=== PATIENT | female | born 1980 | race Caucasian/White ===

== ENCOUNTER 2017-05-27 19:27 | Emergency (ER) | payer MEDICAID ==
[2016-05-01 05:16] VITALS: Ht 162.6 cm; Wt 105.7 kg
[~2017-05-27] VITALS: Ht 162.6 cm; Wt 105.7 kg
[~2017-05-27 19:27] MED LIST: ACET-1966 PO; AMOX500T10 PO; ATEN-1 PO; CYCL-277 PO; CYCL10TA29 PO; DOCU240C67 PO; HYDR-4309 PO; IBUP800T37 PO; LAN30PT PO; LANS30TA12 PO; LEV125 PO; Lanolin TP; META800T18 PO; ONDA4TAB PO; OXYC-373 PO; PER PO; PREN-136 PO; SUCR1TAB85 PO; TIZA4CAP3 PO; TRAM-420 PO; TRAZ-156 PO; ZOLP-358 PO
--- NOTE | 2017-05-27 19:29 | ER Report ---
History and Physical Time Seen By MD: 19:29 HPI/ROS CHIEF COMPLAINT: Rectal bleeding, leg swelling HISTORY OF PRESENT ILLNESS: 36-year-old female presents ambulatory to the ER with a variety of complaints. She is approximately one year . Patient's complaint of rectal bleeding for 3 weeks. She states she was seen by her primary care. According Yuriy and diagnostic blood work was unremarkable. She's not been referred to follow-up with general surgery for further evaluation. Patient is complaining of bilateral leg swelling. She is concerned about knee pain. Apparently she's been seen by Dr. Basurto orthopedic surgery who advised physical therapy, but she is not gone to any appointments yet. Patient admits that she is hypothyroid and thyroid medication as prescribed for her, but she's not taking it. Patient was given Lasix after her last delivery by LABORATORY MONITOR for leg swelling. Patient also talks about chronic back pain. She states she has a history of scoliosis and has had rods placed in her back. She describes a tearing pain is chronic in her back. She states that doctors don't seem to listen to her when she complains about her symptoms. Patient's also requesting supplements to help her conditions. REVIEW OF SYSTEMS: Respiratory: No cough, no dyspnea. Cardiovascular: No chest pain, no palpitations. Gastrointestinal: No vomiting, no abdominal pain. Musculoskeletal: No back pain. Allergies: Coded Allergies: No Known Drug Allergies (Unverified , 05/27/17) Home Meds Active Scripts Furosemide (LASIX) 20 Mg Tablet, 1 TAB PO DAILY for lower extremity swelling, # 14 TAB Prov:MIRTHA SALGADO DO 05/27/17 Hydrocortisone Acetate (Hemmorex-Hc) 25 Mg Supp.rect, 1 SUPP.RECT WI BID for internal hemorrhoids, #20 Prov:MIRTHA SALGADO DO 05/27/17 Reported Medications Paroxetine Hcl (PAXIL) 20 Mg Tablet, 50 MG PO QDAY, TAB 05/27/17 Discontinued Scripts Metaxalone (SKELAXIN) 800 Mg Tablet, 800 MG PO Q8H for back pain, #15 0 Refills Prov:SAUNDRA SINGH NP 08/21/16 Reviewed Nurses Notes: Yes Old Medical Records Reviewed: Yes Hx Smoking: Yes Smoking Status: Former Smoker Exposure to Second Hand Smoke?: Yes Hx Substance Use Disorder: No Constitutional Vital Sign - Last 24 Hours 1205/27/17 05/27/17 05/27/17 19:27 19:36 19:41 20:31 Temp 98.8 Pulse ??? 120 Resp 18 B/P (MAP) 160/96 160/96 (117) 149/105 (120) Pulse Ox 92 O2 Delivery Room Air 05/27/17 20:36 B/P (MAP) 139/104 (116) Physical Exam Vital signs stable, afebrile, pulse ox normal General Appearance: The patient is alert, has no immediate need for airway protection and no current signs of toxicity. Skin warm, dry, pink Eyes: Pupils equal and round no injection. Respiratory: Chest is non tender, lungs are clear to auscultation. Cardiac: regular rate and rhythm Gastrointestinal: Abdomen is soft and non tender, no masses, bowel sounds normal. Anoscopy was performed, there were some friable internal hemorrhoids noted, no active bleeding Musculoskeletal: Neck: Neck is supple and non tender. Extremities have full range of motion and are non tender. Skin: No rashes or lesions. DIFFERENTIAL DIAGNOSIS: After history and physical exam differential diagnosis was considered for lower GI bleeding including but not limited to diverticulosis , tumor, AVM, hemorrhoid and anal fissure. Lower extremity edema, hypothyroidism, depression, somatization disorder Medical Decision Making ED Course/Re-evaluation ED Course Patient was admitted to an examination room. H&P was done. The dental diagnoses was considered. On conical examination. Patient has stable vital signs. Occult to determine the amount of rectal bleeding. She has. Patient notes no old for blood. She denies passing clots. She notes occasional blood on the tissue when she wipes. Patient states she had blood work done that was normal showing no evidence of anemia. She denies clotting disorder. Anoscopy shows friable internal hemorrhoids. She'll be prescribed hemorrhoidal suppositories for treatment of this. She is advised to add stool softeners to her diet. Patient will be started on Lasix 20 mg for lower extremity edema. She is advised to follow-up with internal medicine. She's given information to follow up with primary care doctors to assess her numerous medical complaints. My concern is that she is receiving medical advice, but she doesn't seem to be compliant in medical care. She's failed to follow-up with physical therapy as recommended by Dr. Cody fontaine. She's been prescribed thyroid medicine, which she is not taking. I suspect she is suffering depression and somatization disorder. She is currently taking Paxil for depression. Decision to Disposition Date: May 27, 2017 Decision to Disposition Time: 20:09 Depart Departure Latest Vital Signs Vital Signs Date Time Temp Pulse Resp B/P (MAP) Pulse Ox O2 Delivery O2 Flow Rate FiO2 05/27/17 20:36 139/104 (116) 05/27/17 19:36 98.8 120 18 92 Room Air Impression: Primary Impression: Internal hemorrhoids Additional Impressions: Lower extremity edema Knee pain Condition: Improved Disposition: HOME OR SELF-CARE Referrals: MARIKA GROVRE MD, FARRUKH MD New Scripts Furosemide (LASIX) 20 Mg Tablet 1 TAB PO DAILY for lower extremity swelling, #14 TAB Prov: MIRTHA SALGADO DO 05/27/17 Hydrocortisone Acetate (Hemmorex-Hc) 25 Mg Supp.rect 1 SUPP.RECT WI BID for internal hemorrhoids, #20 Prov: MIRTHA SALGADO DO 05/27/17 Patient Instructions: Hemorrhoids (ED), Leg Edema (ED) Additional Instructions: Take Lasix 20 mg per day for lower extremity edema Use hemorrhoidal suppositories twice daily for 10 days to treat internal hemorrhoids Follow-up with Dr. Grover/Tanner within one week to get established with a primary care physician Problem Qualifiers Additional Impressions: Knee pain Chronicity: chronic Laterality: unspecified laterality Qualified Codes: M25.569 - Pain in unspecified knee; G89.29 - Other chronic pain MIRTHA SALGADO DO May 27, 2017 19:29
[2017-05-27] MEDS ORDERED: PARO-243 PO (19:49)
[2017-05-27] MEDS ORDERED: HYDR25SU10 PR (20:13)
[2017-05-27] MEDS ORDERED: FURO20TA19 PO (20:13)
[2017-05-27 20:36] VITALS: BP 139/104
[2017-06-10] MEDS ORDERED: LEVO25TA61 PO (15:40)
[2017-06-10] MEDS ORDERED: HYDR25SU10 PR (15:55)
[2017-06-12] MEDS ORDERED: PARO-243 PO (11:59)
[2017-06-12] MEDS ORDERED: LEVO-3 PO (11:59)
== END 2017-05-27 20:39 | disposition home or self-care (01) ==
LOC: ER 19:55
DX: K64.8 Other hemorrhoids (principal); G89.29 Other chronic pain; R60.9 Edema, unspecified; M25.562 Pain in left knee; M25.561 Pain in right knee
CPT/HCPCS: 99282

== ENCOUNTER → 2017-07-08 | Outpatient (CLI) | payer MEDICAID ==
[2016-05-01 05:16] VITALS: BMI 57.6
[~2017-07-08] MED LIST changes: +DICL100G7 TOP; +FURO20TA19 PO; +HYDR25SU10 PR; +HYDR25SU34 RC; +LEVO-3 PO; +LEVO25TA61 PO; +PARO-243 PO
== END ==
LOC: LAB 16:48
PROVIDERS: ATTEND Nurse Practitioner Family
DX: E03.9 Hypothyroidism, unspecified (principal)
CPT/HCPCS: 36415; 84443

== ENCOUNTER → 2017-11-12 | Outpatient (CLI) | payer MEDICAID ==
[2016-05-01 05:16] VITALS: BMI 57.6
[2017-11-12 16:26] LABS: PLATELET COUNT, AUTOMATED 315 K/uL (150-450)
== END ==
LOC: LAB 16:08
PROVIDERS: ATTEND Nurse Practitioner Family
DX: E03.9 Hypothyroidism, unspecified (principal); F32.9 Major depressive disorder, single episode, unspecified; R00.0 Tachycardia, unspecified
CPT/HCPCS: 36415; 82040; 82247; 82310; 82374; 82435; 82565; 82947; 84075; 84132; 84155; 84295; 84443; 84450; 84460; 84520; 85025

== ENCOUNTER 2017-11-30 15:07 | Emergency (ER) | payer MEDICAID ==
[2016-05-01 05:16] VITALS: Wt 108.9 kg
[2017-11-30 15:13] VITALS: BP 133/97
--- NOTE | 2017-11-30 15:21 | ER Report ---
History and Physical Time Seen By MD: 15:21 Hx. of Stated Complaint: PAIN AND SWELLING TO L HEEL, REPORTS HAS BEEN SEEING MD FOR THIS AND HAS HAD XRAY AND MRI BUT THEY HAVE FOUND NOTHING WRONG HPI/ROS This is a 37-year-old female with multiple chronic medical problems who presents to the emergency department with pain and swelling in her left ankle and heel. She reports the symptoms have been ongoing for one year. However used only at rest, and now she has pain with ambulation. She has been seen a flight operations specialist in town. She is had multiple imaging studies to include MRIs. None of the studies have been able to detect a source of her pain. She denies any warmth or redness or swelling in her joints. No rashes. She went to physical therapy 2 times but said that it made her ankle worse and therefore she told the flight operations specialist that she would not go back to physical therapy. She has been referred to see pain management. Remainder of the 14 system rev: Yes Allergies: Coded Allergies: No Known Drug Allergies (Unverified , 11/30/17) Home Meds Active Scripts Levothyroxine Sodium (LEVOTHYROXINE SODIUM) 0.125 Mg Tab, 1 TAB PO QDAY, #90 TAB 0 Refills Prov:SUHAIL AMIN APRN-C 11/14/17 Paroxetine Hcl (PAXIL) 20 Mg Tablet, 1 TAB PO QDAY, #30 TAB 5 Refills Prov:SUHAIL AMIN APRN-C 09/08/17 Hydrocortisone Acetate (HYDROCORTISONE ACETATE) 25 Mg Supp.rect, 25 MG RC BID Y for HEMORRHOIDS, #30 SUPP.RECT 1 Refill Prov:SUHAIL AMIN APRN-C 07/08/17 Oxycodone Hcl/Acetaminophen (OXYCODONE-ACETAMINOPHEN 5-325) 1 Each Tablet, 1 EACH PO QID, #30 TAB 0 Refills Prov:SUHAIL AMIN APRN-C 07/08/17 Reviewed Nurses Notes: Yes Old Medical Records Reviewed: Yes Hx Smoking: Yes Smoking Status: Former Smoker Exposure to Second Hand Smoke?: Yes Hx Substance Use Disorder: No Constitutional Vital Sign - Last 24 Hours 11/30/17 15:13 Temp 98.4 Pulse 119 Resp 14 B/P (MAP) 133/97 Pulse Ox 95 Physical Exam General Appearance: The patient is alert, has no immediate need for airway protection and no current signs of toxicity. Eyes: Pupils equal and round no injection. Respiratory: Chest is non tender, lungs are clear to auscultation. Cardiac: regular rate and rhythm Extremities have full range of motion and there is no swelling/erythema/warmth. There is TTP to the left calcaneus and b/l malleolus Skin: No rashes or lesions. DIFFERENTIAL DIAGNOSIS: After history and physical exam differential diagnosis was considered for fracture, dislocation, tendonitis, septic joint Medical Decision Making ED Course/Re-evaluation ED Course No imaging needed, because this is not an acute problem and she has had multiple imaging studies. There is no notable swelling in her ankle. No erythema or warmth. She has a flight operations specialist who is following her, and she has been sent to pain management. She is awaiting an appointment with the management. In the meantime and to place her in a walking boot in hopes that that helps her with her symptoms. Decision to Disposition Date: Nov 30, 2017 Decision to Disposition Time: 16:24 Depart Departure Latest Vital Signs Vital Signs Date Time Temp Pulse Resp B/P (MAP) Pulse Ox O2 Delivery O2 Flow Rate FiO2 11/30/17 15:13 98.4 119 14 133/97 95 Impression: Primary Impression: Left foot pain Condition: Improved Disposition: HOME OR SELF-CARE Referrals: SUHAIL AMIN APRN [employer] MACHINE ATTACHMENT TESTER-C (PCP) Patient Instructions: GENERAL ER DISCHARGE INSTRUCTIONS JOSE BRYANT MD Nov 30, 2017 15:21
== END 2017-11-30 16:46 | disposition home or self-care (01) ==
LOC: ER 15:29
DX: M79.672 Pain in left foot (principal)
CPT/HCPCS: 99282

== ENCOUNTER → 2018-03-16 | Outpatient (CLI) | payer MEDICAID ==
[2016-05-01 05:16] VITALS: BMI 57.6
[~2018-03-16] MED LIST changes: -TRAZ-156 PO; +TRAZ50TA34 PO
== END ==
LOC: LAB 13:29
PROVIDERS: ATTEND Nurse Practitioner Family
DX: E03.9 Hypothyroidism, unspecified (principal); M53.3 Sacrococcygeal disorders, not elsewhere classified
CPT/HCPCS: 36415; 84443; 85651; 86140

== ENCOUNTER → 2018-03-18 | Outpatient (CLI) | payer MEDICAID ==
[2016-05-01 05:16] VITALS: BMI 57.6
--- NOTE | 2018-03-18 10:24 | RADIOLOGY IMAGING REPORT ---
FACILITY: [facility] [place]IENT NAME: Lenin French : 1980 MR: [id number] V: [id number] EXAM DATE: ORDERING PHYSICIAN: SUHAIL AMIN TECHNOLOGIST: Location: [facility] Patient: Lenin French : 1980 Visit/Account:[id number] Date of Sevice: 03/18/2018 Exam type: SACROILIAC JOINTS 3 OR < VIEWS History: Chronic SI joint pain Comparison: Lumbar spine series February 13, 2014. Findings: The SI joints appear relatively symmetric bilaterally. There is no evidence of significant arthritic change although there is very mild sclerosis on the adjacent articular surfaces of the left SI joint .. No evidence of fracture or dislocation IMPRESSION: 1. Very mild sclerosis of the adjacent articular surfaces of the left SI joint. Possibly related to very mild arthritic change although no significant arthritic change seen Report Dictated By: Rima Kenny MD at 03/18/2018 10:17 AM Report E-Signed By: Rima Kenny MD at 03/18/2018 10:20 AM WSN:[email or web address]
--- NOTE | 2018-03-18 10:28 | RADIOLOGY IMAGING REPORT ---
FACILITY: [facility] [place] PATIENT NAME: Lenin French : 1980 MR: [id number] V: [id number] EXAM DATE: [id number] ORDERING PHYSICIAN: SUHAIL AMIN TECHNOLOGIST: Location: [facility] Patient: Lenin French : 1980 Visit/Account:[id number] Date of Sevice: 03/18/2018 Exam type: THORACIC SPINE 3 VIEWS History: thoracic back pain chronic Comparison: February 13, 2014. Findings: Again noted are postoperative changes from scoliosis surgery with Gonzalez ky placement there is a dextroconvex curvature in the midthoracic spine that appears relatively unchanged. The left [place] ky is fractured at the approximate T10-11 level and appears relatively unchanged. There are old fractures of the medial aspect of the right ribs.. There is no evidence of acute fracture or sublux ation in the thoracic spine IMPRESSION: 1. Postsurgical changes from scoliosis surgery in the thoracic spine. The left internal ky is frac tured at the approximate level of T10-11 and appears unchanged. No evidence of acute fractures or mittal bluxations in the thoracic spine. Report Dictated By: Rima Kenny MD at 03/18/2018 10:20 AM Report E-Signed By: Rima Kenny MD at 03/18/2018 10:23 AM WSN:[email or web address]
--- NOTE | 2018-03-18 10:29 | RADIOLOGY IMAGING REPORT ---
FACILITY: PATIENT NAME: Lenin French : 1980 MR: [id number] V: [id number] EXAM DATE: [id number] ORDERING PHYSICIAN: SUHAIL AMIN TECHNOLOGIST: Location: [facility] - [place] Patient: Lenin French : 1980 Visit/Account:[id number] Date of Sevice: 03/18/2018 Exam type: LUMBAR SPINE 2 OR 3 VIEW History: low back pain Comparison: February 13, 2014. Findings: Again noted are postoperative changes from a prior scoliosis surgery with Gonzalez ky placement. (10 ky is fractured at the approximate level of T10-11 appears similar to the prior study. There is a levoconvex curvature to the lumbar spine that appears relatively unchanged. Screws are seen at T12 and L1 some are to the prior study. There is moderate disc space narrowing at L2-3 with anterior osteophytes slightly increased when com pared the prior study IMPRESSION: 1. Postsurgical changes from prior scoliosis surgery as described Levoconvex scoliosis lumbar spine appears some are to the prior study Moderate degenerative changes at L2-3 slightly increased when compared the prior study Report Dictated By: Rima Kenny MD at 03/18/2018 10:23 AM Report E-Signed By: Rima Kenny MD at 03/18/2018 10:26 AM WSN:[email or web address]
== END ==
LOC: RAD 08:26
PROVIDERS: ATTEND Nurse Practitioner Family
DX: M41.86 Other forms of scoliosis, lumbar region (principal); M51.36 Other intervertebral disc degeneration, lumbar region
CPT/HCPCS: 72072; 72100; 72200

== ENCOUNTER 2018-06-05 15:12 | Emergency (ER) | payer OTHER, MEDICAID ==
[2016-05-01 05:16] VITALS: Wt 108.9 kg
[~2018-06-05 15:12] MED LIST changes: +BUSP7.5T7 PO; +FLU60SYR36 IM; -HYDR-4309 PO; +HYDR-653 PO; +MELO-205 PO; +TIZA2CAP3 PO
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
--- NOTE | 2018-06-05 16:19 | RADIOLOGY IMAGING REPORT ---
FACILITY: [facility] PATIENT NAME: Lenin French : 1980 MR: [id number] V: [id number] EXAM DATE: ORDERING PHYSICIAN: AURA RALPH TECHNOLOGIST: Location: [facility] [place] Patient: Lenin French : 1980 Visit/Account:[id number] Date of Sevice: 06/05/2018 HEAD W/O CONTRAST EXAMINATION: CT head/brain without contrast HISTORY: TECHNIQUE: Contiguous axial images were obtained from the skull base to the vertex without intravenou s contrast. One of the following dose optimization techniques was utilized in the performance of this exam: Autom ated exposure control; adjustment of the mA and/or kV according to the patient's size; or use of an i terative reconstruction technique. Specific details can be referenced in the facility's radiology C T exam operational policy. COMPARISON STUDIES: None FINDINGS: Ventricles/sulci/fissures: Negative Masses/hemorrhage/midline shift: No parenchymal hemorrhage White matter: No white matter edema or contusion Grady-white differentiation: Well-maintained grady matter with no cerebral contusion or edema change Extra-axial spaces: No subdural or epidural fluid collections. No subarachnoid blood Dural venous sinuses/arterial structures: Negative Skull base/calvarium: No calvarial or skull base abnormalities. Visualized mastoid air cells/paranasal sinuses: Negative IMPRESSION: 1. Negative CT scan of the head for acute intracranial pathology. Report Dictated By: Jesse Tabares MD at 06/05/2018 4:12 PM Report E-Signed By: Jesse Tabares MD at 06/05/2018 4:14 PM WSN:PATTIE
[2018-06-05 16:30] VITALS: BP 133/113
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
== END 2018-06-05 17:16 | disposition home or self-care (01) ==
LOC: ER 15:18
DX: M54.2 Cervicalgia (principal); M54.6 Pain in thoracic spine; R10.2 Pelvic and perineal pain; R51 Headache; V49.40XA Driver injured in collision with unspecified motor vehicles in traffic accident, initial encounter
CPT/HCPCS: 70450; 71045; 72125; 72128; 72170; 99284